=== PATIENT | female | born 1940 | race Caucasian/White ===

== ENCOUNTER 2018-12-20 16:13 | Outpatient (CLI) | payer MEDICARE, OTHER | END 2018-12-20 16:14 | disposition critical access hospital (66) | LOC: EMS 16:13 | PROVIDERS: ATTEND Surgery | DX: R44.9 Unspecified symptoms and signs involving general sensations and perceptions (principal); R53.81 Other malaise | CPT/HCPCS: A0425; A0427 ==

== ENCOUNTER 2018-12-20 16:34 | Emergency (ER) | payer MEDICARE, OTHER ==
--- NOTE | 2018-12-20 16:48 | ED Physician Documentation ---
History of Present Illness - Stated complaint Stated Complaint: HYPOGLYCEMIC - Chief complaint Chief Complaint: General - History obtained from History obtained from: Patient, EMS - History of Present Illness Timing: Today (Is a 78-year-old woman who felt confused, and flushed. EMS was called. Blood sugar was found to be 68. She was administered D50. She takes Humulin and NovoLog she thinks.) Review of Systems Ten Systems: 10 systems reviewed and negative Constitutional: denies: Fever, Chills Throat: denies: Dental pain / toothache, Sore throat Respiratory: denies: Dyspnea, Cough PD PAST MEDICAL HISTORY - Present Medications Home Medications: Ambulatory Orders Medication Instructions Recorded Confirmed Atorvastatin [Lipitor] 0 mg 12/20/18 Clopidogrel [Plavix] 75 mg PO DAILY 12/20/18 12/20/18 Famotidine [Acid Controller] 20 mg PO 12/20/18 Insulin Lispro [Humalog] 10 unit SUBQ ONCE 12/20/18 12/20/18 Levofloxacin [Levaquin] 500 mg PO DAILY #7 tablet 12/20/18 Lorazepam [Ativan] 1 mg PO DAILY 12/20/18 12/20/18 Losartan [Cozaar] 100 mg PO DAILY 12/20/18 12/20/18 PARoxetine [Paxil] 10 mg PO DAILY 12/20/18 12/20/18 amLODIPine [Norvasc] 10 mg PO DAILY 12/20/18 12/20/18 cloNIDine [Catapres] 0.1 mg PO BID 12/20/18 12/20/18 metFORMIN [Glucophage] 500 mg PO BIDWM 12/20/18 12/20/18 traZODone [Desyrel] 50 mg PO HS 12/20/18 12/20/18 - Allergies Allergies/Adverse Reactions: Allergies Allergy/AdvReac Type Severity Reaction Status Date / Time codeine Allergy Unknown Verified 12/20/18 16:42 lisinopril Allergy Unknown Verified 12/20/18 17:40 Sulfa (Sulfonamide Allergy Unknown Verified 12/20/18 16:42 Antibiotics) PD ED PE NORMAL - Vitals Vital signs reviewed: Yes - General General: Alert and oriented X 3, No acute distress - HEENT HEENT: PERRL, EOMI (With nystagmus horizontally) - Neck Neck: Supple, no meningeal sign, No bony TTP - Cardiac Cardiac: RRR, No murmur - Respiratory Respiratory: No respiratory distress, Clear bilaterally - Abdomen Abdomen: Normal bowel sounds, Soft, Non tender - Back Back: No CVA TTP, No spinal TTP - Derm Derm: Normal color, Warm and dry - Extremities Extremities: No edema, No calf tenderness / cord - Neuro Neuro: Alert and oriented X 3, Normal speech Results - Vitals Vitals: Vital Signs - 24 hr 12/20/18 16:34 Temperature 35.7 C L Heart Rate 73 Respiratory 18 Rate Blood Pressure 129/78 O2 Saturation 99 Oxygen O2 Source Room air - Labs Labs: Laboratory Tests 12/20/18 12/20/18 12/20/18 16:43 17:15 17:25 WBC 12.6 H RBC 5.23 Hgb 13.4 Hct 42.4 MCV 81.2 MCH 25.7 L MCHC 31.7 L RDW 17.6 H Plt Count 253 MPV 8.2 Neut # (Auto) 9.9 H Lymph # (Auto) 1.8 [place] # (Auto) 0.8 Eos # (Auto) 0.1 Baso # (Auto) 0.1 Absolute Nucleated RBC 0.00 Nucleated RBC % 0.0 Sodium Potassium Chloride Carbon Dioxide Anion Gap BUN Creatinine Estimated GFR (MDRD) Glucose POC Whole Bld Glucose 194 H Calcium Total Bilirubin AST ALT Alkaline Phosphatase Total Creatine Kinase Total Protein Albumin Globulin Albumin/Globulin Ratio Lipase Urine Color LT. YELLOW Urine Clarity HAZY Urine pH 6.5 Ur Specific [place] 1.010 Urine Protein TRACE Urine Glucose (UA) 100 H Urine Ketones NEGATIVE Urine Occult Blood NEGATIVE Urine Nitrite POSITIVE H Urine Bilirubin NEGATIVE Urine Urobilinogen 0.2 (NORMAL) Ur Leukocyte Esterase SMALL H Urine RBC None Seen Urine WBC 0-3 Ur Squamous Epith Cells RARE Squamous Urine Bacteria Moderate H Ur Microscopic Review INDICATED Urine Culture Comments INDICATED Ethyl Alcohol 12/20/18 17:25 WBC RBC Hgb Hct MCV MCH MCHC RDW Plt Count MPV Neut # (Auto) Lymph # (Auto) [place] # (Auto) Eos # (Auto) Baso # (Auto) Absolute Nucleated RBC Nucleated RBC % Sodium 136 Potassium 3.4 L Chloride 96 L Carbon Dioxide 26 Anion Gap 14.0 H BUN 25 H Creatinine 1.3 H Estimated GFR (MDRD) 40 L Glucose 142 H POC Whole Bld Glucose Calcium 10.0 Total Bilirubin 0.8 AST 27 ALT 25 Alkaline Phosphatase 86 Total Creatine Kinase 162 Total Protein 8.1 Albumin 4.2 Globulin 3.9 Albumin/Globulin Ratio 1.1 Lipase 40 Urine Color Urine Clarity Urine pH Ur Specific [place] Urine Protein Urine Glucose (UA) Urine Ketones Urine Occult Blood Urine Nitrite Urine Bilirubin Urine Urobilinogen Ur Leukocyte Esterase Urine RBC Urine WBC Ur Squamous Epith Cells Urine Bacteria Ur Microscopic Review Urine Culture Comments Ethyl Alcohol < 5.0 - Rads (name of study) CT Head Radiology: EMP read contemporaneously (Generalized age-related cortical atrophic changes and 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 Departure - Departure Disposition: 01 Home, Self Care Clinical Impression: Confusion UTI (urinary tract infection) Qualifiers: Urinary tract infection type: site unspecified Hematuria presence: without hematuria Qualified Code(s): N39.0 - Urinary tract infection, site not specified Condition: Good Record reviewed to determine appropriate education?: Yes Instructions: ED UTI Cystitis Female Prescriptions: Levofloxacin [Levaquin] 500 mg PO DAILY #7 tablet Comments: We will culture your urine, the results should be done in 48-72 hours. If an antibiotic change is necessary we will call you. Return if worse in the meantime, especially if you develop increasing flank pain, fevers, or cannot keep down the medication. Your blood pressure was elevated today on check into the emergency department. This does not mean that you have hypertension, it is a common phenomenon to come to the emergency department and have elevated blood pressure. I recommend that you see your primary care physician within the week to have it rechecked when you are feeling better.
[2018-12-20 17:32] LABS: BILIRUBIN,URINE NEGATIVE (NEGATIVE); GLUCOSE, URINE (UA) 100 mg/dL (NEGATIVE); KETONES,URINE (UA) NEGATIVE (NEGATIVE); LEUKOCYTE ESTERASE, URINE SMALL (NEGATIVE); NITRITE,URINE POSITIVE (NEGATIVE); OCCULT BLOOD,URINE NEGATIVE (NEGATIVE); PH,URINE 6.5 PH (5.0-7.5); PROTEIN,URINE TRACE mg/dL (NEGATIVE); UROBILINOGEN,URINE 0.2 (NORMAL) E.U./dL (NORMAL)
[2018-12-20 17:34] LABS: CLARITY,URINE HAZY (CLEAR)
[2018-12-20 17:36] LABS: BASOPHILS # (AUTO) 0.1 10^3/uL (0.0-0.1); BASOPHILS % (AUTO) 0.7 %; EOSINOPHILS # (AUTO) 0.1 10^3/uL (0.0-0.7); EOSINOPHILS % (AUTO) 0.9 %; HGB - HEMOGLOBIN 13.4 g/dL (12.0-16.0); LYMPHOCYTES # (AUTO) 1.8 10^3/uL (1.5-3.5); LYMPHOCYTES % (AUTO) 13.9 %; MEAN CORPUSCULAR HEMOGLOBIN 25.7 pg (27.0-31.0); MEAN CORPUSCULAR HGB CONC 31.7 g/dL (32.0-36.0); MEAN CORPUSCULAR VOLUME 81.2 fL (81.0-99.0); MEAN PLATELET VOLUME 8.2 fL (7.9-10.8); MONOCYTES # (AUTO) 0.8 10^3/uL (0.0-1.0); MONOCYTES % (AUTO) 6.2 %; NEUTROPHILS # (AUTO) 9.9 10^3/uL (1.5-6.6); NEUTROPHILS % (AUTO) 78.3 %; PLT - PLATELET COUNT 253 10^3/uL (130-450); RED BLOOD COUNT 5.23 10^6/uL (4.20-5.40); RED CELL DISTRIBUTION WIDTH 17.6 % (12.0-15.0); WHITE BLOOD COUNT 12.6 x10^3/uL (4.8-10.8)
[2018-12-20 17:41] LABS: BACTERIA,URINE Moderate /HPF (None Seen); RBC,URINE None Seen /HPF (0-5); SQUAMOUS EPITHELIAL CELL,UR RARE Squamous (<= Few)
--- NOTE | 2018-12-20 17:51 | CT Report ---
Reason: altered Procedure Date: 12/20/2018 Accession Number: [id number] / [id number] Procedure: CT - HEAD WO CPT Code: FULL RESULT: EXAM: CT HEAD EXAM DATE: 12/20/2018 05:03 PM. CLINICAL HISTORY: Altered mental status. COMPARISON: None. TECHNIQUE: Multiaxial CT images were obtained from the foramen magnum to the vertex. Reformats: Sagittal and coronal. IV contrast: None. In accordance with CT protocol optimization, one or more of the following dose reduction techniques were utilized for this exam: automated exposure control, adjustment of mA and/or KV based on patient size, or use of iterative reconstructive technique. FINDINGS: Parenchyma: No intraparenchymal hemorrhage. 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 Old lacunar infarct in the anterior left basal ganglia. No evidence of mass, midline shift, or CT findings of acute infarction. Rudd-white differentiation is distinct. 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 Extraaxial Spaces: Normal for age. No subdural or epidural collections identified. Ventricles: The ventricles and cortical sulci are prominent, consistent with age-related tissue loss. Sinuses and orbits: Imaged paranasal sinuses, orbits, and mastoids show no significant abnormality. Bones: No evidence of fracture or calvarial defect. Other: None. 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 [facility]
[2018-12-20 17:58] LABS: ALBUMIN 4.2 g/dL (3.2-5.5); ALBUMIN/GLOBULIN RATIO 1.1 (1.0-2.2); ALKALINE PHOSPHATASE 86 IU/L (42-121); ALT ALANINE AMINOTRANSFERASE 25 IU/L (10-60); AST ASPARTATE AMINOTRANSFERASE 27 IU/L (10-42); BILIRUBIN,TOTAL 0.8 mg/dL (0.2-1.0); BUN - BLOOD UREA NITROGEN 25 mg/dL (6-20); CARBON DIOXIDE - CO2 26 mmol/L (21-32); CHLORIDE 96 mmol/L (101-111); CK- CREATINE KINASE 162 IU/L (22-269); CREATININE 1.3 mg/dL (0.4-1.0); GFR - MDRD 40 (>89); GLUCOSE 142 mg/dL (70-100); LIPASE 40 U/L (22-51); SODIUM 136 mmol/L (135-145); TOTAL PROTEIN 8.1 g/dL (6.7-8.2)
[2018-12-20] MEDS ORDERED: levoFLOXacin 250 MG TABLET PO STA (18:04)
[2018-12-20 18:18] VITALS: BP 153/57
== END 2018-12-20 18:27 | disposition home or self-care (01) ==
LOC: EDBD → ED 16:34
DX: R41.0 Disorientation, unspecified (principal); N39.0 Urinary tract infection, site not specified; R03.0 Elevated blood-pressure reading, without diagnosis of hypertension
CPT/HCPCS: 36415; 70450; 80053; 81001; 82550; 83690; 85025; 87077; 87086; 87181; 99283; 99284; A9270; 80320; 81003